=== PATIENT | male | born 1940 | race Caucasian/White ===

== ENCOUNTER 2025-06-15 14:32 | Inpatient (IN) | payer MEDICARE, SELFPAY ==
[2025-06-15] VITALS (11 sets, daily range): BP systolic 133–206; BP diastolic 48–79; BMI 31.2
[2025-06-15 12:18] LABS: Hematocrit 43.0 % (39.0-52.0); Hemoglobin 13.4 g/dL (13.0-18.0); Mean Corp Hgb Conc. 31.2 g/dL (33.0-37.0); Mean Corpuscular Volume 93.1 fL (80.0-94.0); Nucleated Red Blood Cells % 0 % (-); Platelet Count 184 10^3/uL (130-400); Red Cell Dist. Width 14.2 % (11.5-14.5)
[2025-06-15 12:32] LABS: ALT (SGPT) 25 U/L (0-50); AST (SGOT) 25 U/L (17-59); Albumin 4.3 g/dl (3.5-5.0); Alkaline Phosphatase 62 U/L (38-126); Blood Urea Nitrogen 22 mg/dl (9-20); Calcium 9.8 mg/dl (8.4-10.2); Carbon Dioxide 28 mmol/L (22-30); Chloride 104 mmol/L (98-107); Estimated Creatinine Clearance 39 ml/min; Glucose 171 mg/dl (70-99); Potassium 4.6 mmol/L (3.5-5.1); Sodium 137 mmol/L (135-145); Total Protein 7.3 g/dl (6.3-8.2); eGFR 49.56
[2025-06-15 12:43] LABS: Troponin I < 0.012 ng/ml
--- NOTE | 2025-06-15 12:54 | ED.GENMED ---
History of Present Illness
<Zen Oropeza MD - Last Filed: 06/15/25 12:55>
General
Chief Complaint: Cardiac Symptoms
Time Seen by Provider: 06/15/25 11:58
<Anushka Galan PA-C - Last Filed: 06/15/25 23:00>
General
Source: patient
Exam Limitations: none
Nursing documentation reviewed up to this point in time: agreed with
History of Present Illness
History of Present Illness:
Patient is an 85-year-old male with history hypertension who presents to the emergency department after multiple episodes of syncope. Patient states that he experienced a sudden syncopal event on May 19 and was found by his on the ground.
He did not seek care at that time and felt that he may have been dehydrated. However, since that time he has had about 12 additional episodes of near syncope or sudden syncope without prodromal symptoms.
Patient was seen by his primary care provider who ordered a Holter monitor and an MRI of the brain. He has yet to have MRI of brain performed however he did have a Holter monitor which showed sinus bradycardia, high degree AV block, and sinus
pauses. He was referred to the emergency department for pacemaker placement.
Currently, patient is asymptomatic and feels fine. He does report that he has sustained multiple falls secondary to syncope over the past few weeks. He does not have any pain in his extremities suggestive of a traumatic injury. He has not been
able to schedule his MRI thus far.
Review of Systems
<Anushka Galan PA-C - Last Filed: 06/15/25 23:00>
Review of Systems
Allergies reviewed?: Yes
All Other Systems: ROS reviewed and negative except as documented in HPI and ROS
Phy Exam
<Anushka Galan PA-C - Last Filed: 06/15/25 23:00>
Physical Exam
Physical Exam:
Vitals: Hypertensive, otherwise vital signs stable. Afebrile
General: Patient is in no distress
Skin: Warm and dry, no rashes or lesions
Head: Normocephalic, atraumatic
Eyes: Sclera nonicteric. EOMs intact.
Throat: Protecting airway
Neck: Normal ROM, no cervical spine tenderness, no meningismus
Cardiac: Regular rate and rhythm, no murmurs. No reproducible chest wall tenderness. 2+ palpable radial pulses bilaterally
Pulm: Normal respiratory effort. Lungs clear bilaterally
Abdomen: Abdomen soft and nontender.
Extremities: No evidence of cyanosis or edema
Neuro: AAOx3. Grossly intact.
Psychiatric: Normal affect.
Course
<Zen Oropeza MD - Last Filed: 06/15/25 12:55>
Orders/Labs/Results
Orders:
Orders
06/15/25 11:17
Electrocardiogram (*1) Urgent
Reason for Study: Syncope
06/15/25 11:18
EKG- Treatment ONCE
06/15/25 12:02
Complete Blood Count/With Diff Urgent
Comprehensive Metabolic Panel Urgent
Troponin I Urgent
06/15/25 12:34
CT Head W/o Iv Contrast Urgent
Comment:
Reason For Exam: syncope w/ head strike
Cervical Spine wo Contrast CT [CT Cervical Spine W/o Iv Contr] Urgent
Comment:
Reason For Exam: syncope w/ head strike
06/15/25 14:25
Admit/Transfer Patient As Directed
Co-Sign Provider:
Level of Care: Inpatient admission
Assign to:: IVU
Physician / Group: ashley
Diagnosis: high grade AV block
Reason for Hospitalization: high grade AV block
Expected length of stay greater than two midnights?: Yes
ELOS- Estimated Length of Stay in days: 2
I certify the patient meets the requirements for IP care: Yes
Code Status As Directed
Resuscitation Status: Full Code
PRN Pain Medication Management As Directed
May give lesser potent ordered pain med per pt: Yes
preference::
Protocol:: Medication orders for pain may be administered in a
manner that supports deferring to patient preference
when the pt is:
- Requesting an ordered lesser potent pain medication.
Least to most potent pain medications are defined
as: acetaminophen < NSAID < tramadol < opioids
(morphine, oxycodone, hydromorphone).
- Requesting a lesser dose of the same medication IF
ORDERED.
- Requesting a less intrusive route of administration
if both routes are prescribed by the provider (PO <
IV).
06/15/25 14:59
CARDIOLOGY CONSULT Routine
Consulting Provider: Breanne Keys
Was physician already notified: Yes
Activity As Directed
Activity Level: As Tolerated
Vital Signs As Directed
Frequency: Per unit guidelines
DX Deep Vein Thrombosis Video Routine
06/15/25 20:00
Dorzolamide HCl [Trusopt 2% Ophthalmic Solution] 1 drop BOTH EYES BID
Heparin 5,000 units SC Q12
06/15/25 22:00
Cetirizine HCl [Zyrtec] 10 mg PO HS
Latanoprost [Xalatan Ophthalmic Solution] 1 drop BOTH EYES HS
glucosamine sulfate 500 mg PO HS
06/16/25 06:00
Complete Blood Count/With Diff IN AM
Comprehensive Metabolic Panel IN AM
06/16/25 08:00
Aspirin Low Dose EC [Aspir Low (Enteric Coated)] 81 mg PO DAILY
Atorvastatin [Lipitor] 40 mg PO DAILY
Citalopram [Celexa] 10 mg PO DAILY
Multivitamin [Theragran] 1 tablet PO DAILY
Abnormal Lab Results
06/15/25
12:02
RBC 4.62 L 10^6/uL
(4.70-6.10)
MCHC 31.2 L g/dL
(33.0-37.0)
MPV 10.8 H fL
(7.4-10.4)
Absolute Monos (auto) 0.8 H 10^3/uL
(0.1-0.6)
Lymphocytes % 19.3 L %
(20.5-51.1)
Monocytes % 11.3 H %
(1.7-9.3)
BUN 22 H mg/dl
(9-20)
Creatinine 1.4 H mg/dL
(0.7-1.3)
Glucose 171 H mg/dl
(70-99)
06/15/25 12:02
06/15/25 12:02
Vital Signs
Initial and Last Documented VS:
Initial Vital Signs
Temp Pulse Resp BP Pulse Ox
97.8 F 52 16 175/68 96
06/15/25 11:23 06/15/25 11:23 06/15/25 11:23 06/15/25 11:23 06/15/25 11:23
Last Documented Vital Signs
Temp Pulse Resp BP Pulse Ox
97.7 F 64 18 143/51 93
06/15/25 22:22 06/15/25 22:15 06/15/25 22:22 06/15/25 19:26 06/15/25 22:22
<Anushka Galan PA-C - Last Filed: 06/15/25 23:00>
Orders/Labs/Results
Orders:
Orders
06/15/25 11:17
Electrocardiogram (*1) Urgent
Reason for Study: Syncope
06/15/25 11:18
EKG- Treatment ONCE
06/15/25 12:02
Complete Blood Count/With Diff Urgent
Comprehensive Metabolic Panel Urgent
Troponin I Urgent
06/15/25 12:34
CT Head W/o Iv Contrast Urgent
Comment:
Reason For Exam: syncope w/ head strike
Cervical Spine wo Contrast CT [CT Cervical Spine W/o Iv Contr] Urgent
Comment:
Reason For Exam: syncope w/ head strike
06/15/25 14:25
Admit/Transfer Patient As Directed
Co-Sign Provider:
Level of Care: Inpatient admission
Assign to:: IVU
Physician / Group: ashley
Diagnosis: high grade AV block
Reason for Hospitalization: high grade AV block
Expected length of stay greater than two midnights?: Yes
ELOS- Estimated Length of Stay in days: 2
I certify the patient meets the requirements for IP care: Yes
Code Status As Directed
Resuscitation Status: Full Code
PRN Pain Medication Management As Directed
May give lesser potent ordered pain med per pt: Yes
preference::
Protocol:: Medication orders for pain may be administered in a
manner that supports deferring to patient preference
when the pt is:
- Requesting an ordered lesser potent pain medication.
Least to most potent pain medications are defined
as: acetaminophen < NSAID < tramadol < opioids
(morphine, oxycodone, hydromorphone).
- Requesting a lesser dose of the same medication IF
ORDERED.
- Requesting a less intrusive route of administration
if both routes are prescribed by the provider (PO <
IV).
06/15/25 14:59
CARDIOLOGY CONSULT Routine
Consulting Provider: Breanne Keys
Was physician already notified: Yes
Activity As Directed
Activity Level: As Tolerated
Vital Signs As Directed
Frequency: Per unit guidelines
DX Deep Vein Thrombosis Video Routine
06/15/25 20:00
Dorzolamide HCl [Trusopt 2% Ophthalmic Solution] 1 drop BOTH EYES BID
Heparin 5,000 units SC Q12
06/15/25 22:00
Cetirizine HCl [Zyrtec] 10 mg PO HS
Latanoprost [Xalatan Ophthalmic Solution] 1 drop BOTH EYES HS
glucosamine sulfate 500 mg PO HS
06/16/25 06:00
Complete Blood Count/With Diff IN AM
Comprehensive Metabolic Panel IN AM
06/16/25 08:00
Aspirin Low Dose EC [Aspir Low (Enteric Coated)] 81 mg PO DAILY
Atorvastatin [Lipitor] 40 mg PO DAILY
Citalopram [Celexa] 10 mg PO DAILY
Multivitamin [Theragran] 1 tablet PO DAILY
Abnormal Lab Results
06/15/25
12:02
RBC 4.62 L 10^6/uL
(4.70-6.10)
MCHC 31.2 L g/dL
(33.0-37.0)
MPV 10.8 H fL
(7.4-10.4)
Absolute Monos (auto) 0.8 H 10^3/uL
(0.1-0.6)
Lymphocytes % 19.3 L %
(20.5-51.1)
Monocytes % 11.3 H %
(1.7-9.3)
BUN 22 H mg/dl
(9-20)
Creatinine 1.4 H mg/dL
(0.7-1.3)
Glucose 171 H mg/dl
(70-99)
06/15/25 12:02
06/15/25 12:02
Vital Signs
Initial and Last Documented VS:
Initial Vital Signs
Temp Pulse Resp BP Pulse Ox
97.8 F 52 16 175/68 96
06/15/25 11:23 06/15/25 11:23 06/15/25 11:23 06/15/25 11:23 06/15/25 11:23
Last Documented Vital Signs
Temp Pulse Resp BP Pulse Ox
97.7 F 64 18 143/51 93
06/15/25 22:22 06/15/25 22:15 06/15/25 22:22 06/15/25 19:26 06/15/25 22:22
<Anushka Gaaln PA-C - Last Filed: 06/15/25 23:00>
MDM/Problems Addressed
Differential Diagnosis Includes:
Not limited to: Cardiac arrhythmia, AV block, sinus pauses, electrolyte abnormality, coronary artery disease, etc.
MDM/Problems Addressed:
85-year-old male presenting following multiple episodes of sudden syncope over the past few weeks, found to have high degree AV block and sinus pause on holter monitor. Sent for admission and pacemaker placement by cardiology. Patient asymptomatic
and feels well on arrival.
Patient mildly bradycardic with otherwise stable vital signs. Initial EKG shows first- degree AV block. Pacer pads were placed upon arrival to ED room.
Basic labs without acute findings. CT head and cervical spine were obtained given multiple syncopal events over the past few weeks, a few with head strike, without evidence of acute traumatic injuries.
Case reviewed with patrol guard, Dr. Khanna, who is aware. Plan will be for pacemaker placement likely this afternoon. He will require admission to the hospitalist service.
Patient did have a witnessed sinus pause about 7 seconds while on cardiac care unit nurse in ED. He remained alert throughout this pause and asymptomatic. He returned to a sinus rhythm.
Patient admitted to hospitalist service in stable condition and transported to [facility].
Chronic conditions affecting care:
Hypertension
Acute Exacerbation and/or Progression of Chronic Illness:
Acutely hypertensive
<Zen Oropeza MD - Last Filed: 06/15/25 12:55>
*Pulse Oximetry
SaO2: 96
Oxygen Mode of Delivery: Room air
<Anushka Galan PA-C - Last Filed: 06/15/25 23:00>
*Radiology
Radiology exam reviewed: radiology read reviewed
*Pulse Oximetry
Patient hypoxic: no
*EKG
Interpreted by ED Provider?: Yes
EKG Intrepretation Date: 06/15/25
Interpretation: abnormal
Comparison EKG: no changes
Heart Rate: 50
Rate: bradycardiac
Rhythm: sinus
Donalds: normal axis
Interval: normal QT interval
QRS Pattern: right bundle branch block
Ischemia: non-specific ST changes
*Gear Changer Interpretation
Rate: bradycardiac
Interpretation: abnormal
Heart Rate: 48
Rhythm: sinus
*Critical Care Note
Total Time (30-74mins, 75-104mins- exclusive of procedures): Not Applicable
<Anushka Galan PA-C - Last Filed: 06/15/25 23:00>
Patient Management
Discussion with other providers: Hospitalist and Paper Wood Cutter (Case discussed with cardiology)
ED Attending Note
<Zen Oropeza MD - Last Filed: 06/15/25 12:55>
ED Attending Note
Patient seen and examined by attending physician: Yes
I performed the substantive portion of visit, reviewed & personally made and approve the management plan that is documented in note by myself or KEM.: Yes
ED Attending Note:
I have seen and evaluated the patient with a [id number] encounter. I have spoken to the [KEM] and involved in the medical history, the physical exam, medical decision making.
Evaluation and management service: agree unless noted differently below.
Results interpretation: agree unless noted differently below. 85-year-old man presenting to the emergency department with concerns for heart block. Per patient he has history of having syncopal events. He was placed on a monitor and per the
patrol guard patient was found to have a sinus pause with a high degree AV block. Discussed with cardiology who stated that patient needed admission for pacemaker placement. Currently patient has no complaints. He denies any chest pain
lightheadedness dizziness.
GENERAL: in no acute distress
HEENT: normocephalic, extraocular movements intact, moist oral mucosa
NECK: normal inspection
RESPIRATORY: no respiratory distress, clear to auscultation bilaterally
CARDIOVASCULAR: regular rate and rhythm
ABDOMEN/: soft, non-distended, non-tender to palpation, no rebound or guarding
EXTREMITIES: non-tender, no edema/swelling
NEUROLOGIC: awake and alert, moves all extremities
SKIN: warm
85-year-old man presenting to the emergency department after his outpatient monitor showed a sinus pause with high degree block and patient was sent in by cardiology for pacemaker placement. On arrival patient is bradycardic to the 40s. Pads were
placed. Will check blood work. Patient will need admission for pacemaker placement.
-
Portions of this chart may have been created with voice recognition software.� Occasional wrong word or��sound alike� substitutions may have occurred due to the inherent limitations of voice recognition software.
Discharge Plan
Departure
Patient Disposition: Admit
Date of Disposition: 06/15/25
Time of Disposition: 13:36
Presentation/result/management discussed w/ accepting MD/DO: Hospitalist
Discharge Problem:
Syncope, Sinus pause, High degree atrioventricular block
Interventions
Interventions:
*Risk Screen - Suicide Last Done: 06/15/25 11:23
*General Assessment Last Done: 06/15/25 12:05
*Neglect/Abuse Screening Last Done: 06/15/25 11:23
*ED- Fall Risk Assessment Last Done: 06/15/25 14:00
*ED COVID-19 Vaccine History Last Done: 06/15/25 12:05
*ED Influenza Vaccine History Last Done: 06/15/25 12:06
*Nursing Disposition Last Done: 06/15/25 15:53
ED- Pulmonary Assessment Last Done: 06/15/25 12:08
ED- Cardiac Assessment Last Done: 06/15/25 12:06
Discharge Date and Time
Discharge Date/Time: 06/15/25 15:30
--- NOTE | 2025-06-15 14:32 | HPS.HSE ---
Family Physician
-
Family Physician: Hussain Morales
Chief Complaint
-
syncope
History of Present Illness
85-year-old male past medical history of severe aortic stenosis status post bioprosthetic aortic valve replacement, bradycardia, CAD status post CABG, hypertension, hypercholesteremia, prostate cancer, presenting with multiple syncopal episodes
starting earlier this month. His syncopal episodes occur in 2 ways. Sometimes he just blacks out for 30 seconds without any prodrome. At other times he has a blackness coming in from the sides associated with a shreaking sound. He denies any
chest pain or shortness of breath. He did fall multiple times with the syncopal episodes and did hit his head. Denies any headache or blurry vision.
He follows Dr. Gottlieb as his bpm solution architect. He was told he was bradycardic in the past and that he might require pacemaker in the future. Denies any new cardiac medications.
He is a former smoker. Drinks alcohol occasionally.
Medical History
Past Medical History
Past Medical History: Reports Other ( severe aortic stenosis status post bioprosthetic aortic valve replacement, bradycardia, CAD status post CABG, hypertension, hypercholesteremia, prostate cancer)
Past Surgical History: Reports Other (inguinal hernia surgery as a child, and again incidental cholecystectomy in 1997)
Social History
Tobacco: Former Smoker
Alcohol: Occasional
Drug: None
Family History
Family History: Not pertinent
Allergies / Home Medications
Allergies reflects when Allergies were last updated in [facility].
Home Medications with original date entered in [facility]
Allergy/Medication List:
Allergies
Allergy/AdvReac Type Severity Reaction Status Date / Time
cat hair Allergy Unknown Uncoded 06/15/25 11:22
grass Allergy Unknown Uncoded 06/15/25 11:22
Home Medications
aspirin 81 mg tablet,delayed release 81 mg PO DAILY Blood Clot Prevention/Tx 06/08/12
atorvastatin 40 mg tablet (Lipitor) 40 mg PO DAILY High Cholesterol 06/15/25
bimatoprost 0.01 % eye drops (Lumigan) 1 drp BOTH EYES HS Eye Condition 06/15/25
cetirizine 10 mg tablet (Zyrtec) 10 mg PO HS Allergies 06/15/25
citalopram 10 mg tablet (Celexa) 10 mg PO DAILY Mental Health/Anxiety 06/15/25
dorzolamide 2 % eye drops 1 drp BOTH EYES BID Eye Condition 06/15/25
glucosamine sulfate 500 mg tablet 500 mg PO HS Supplement 06/15/25
ibuprofen 200 mg tablet (Advil) 200 mg PO BID mild pain 06/15/25
lisinopril 20 mg tablet 20 mg PO DAILY Blood Pressure 06/15/25
therapeutic multivitamin 1 tab PO DAILY Supplement 06/15/25
Review of Systems
-
History Source: Patient
A 12 point ROS was completed and negative except as noted: Yes
Constitutional: Reports No Symptoms
EENT: Reports No Symptoms
Respiratory: Reports No Symptoms
Cardiac: Reports No Symptoms
Abdomen/GI: Reports No Symptoms
: Reports No Symptoms
Musculoskeletal: Reports No Symptoms
Skin: Reports No Symptoms
Neurological: Reports No Symptoms
Endocrine: Reports No Symptoms
Hematologic/Lymphatic: Reports No Symptoms
Psych: Reports No Symptoms
Physical Exam
Vital Signs
Vital Signs
Temp Pulse Resp BP Pulse Ox
97.8 F 46 11 165/70 96
06/15/25 11:23 06/15/25 12:05 06/15/25 12:00 06/15/25 12:00 06/15/25 12:54
Physical Exam
General: Well Developed, Well Nourished and No Apparent Distress
HEENT: NormoCephalic, Moist mucous membranes and Atraumatic
Respiratory: Clear
Cardiac: S1/S2 and Regular Rhythm; No Murmur or Rub
GI: Soft, Non Tender, Non Distended and Normal Bowel Sounds; No Organomegaly
Rectal: Deferred by Provider
Musculoskeletal: No Clubbing, No Cyanosis and No Edema
Skin: No Rash
Neuro: Nonfocal/grossly intact
Laboratory Results
-
06/15/25 12:02
06/15/25 12:02
Laboratory Results
Total Bilirubin 0.9 mg/dl (0.2-1.3) 06/15/25 12:02
AST 25 U/L (17-59) 06/15/25 12:02
ALT 25 U/L (0-50) 06/15/25 12:02
Alkaline Phosphatase 62 U/L (38-126) 06/15/25 12:02
Troponin I < 0.012 ng/ml 06/15/25 12:02
Data Reviewed
-
Lab Data: Labs Reviewed by me
Old Records: Reviewed
Impression/Plan
-
IMPRESSION:
PLAN:
# Recurrent syncopal episode secondary to high-grade AV block/bradycardia/pauses
- Heart rate 40s
-Asymptomatic currently
-EKG shows sinus bradycardia with first-degree AV block, right bundle branch block which is old
- Cardiology consulted with plan for potential pacemaker today
-N.p.o.
- Chest x-ray pending
- CT head and cervical spine pending
# Acute kidney injury versus CKD
- Hold lisinopril, ibuprofen
- Does not appear volume depleted or overloaded
-continue to monitor
CAD status post CABG
- Continue aspirin, statin
Severe aortic stenosis status post bioprosthetic aortic valve replacement
Essential hypertension
- Hold lisinopril
Hypercholesterolemia
Prostate cancer
Anxiety/depression
-Continue citalopram
Full code
DVT prophylaxis�heparin
N.p.o.
--- NOTE | 2025-06-15 15:05 | ITS.CL.PACE ---
Finisher Hand - Pacemaker Implant
Pacemaker Implant
Procedure Report:
PACEMAKER IMPLANT REPORT
Primary Care Physician: Dr. Hussain Fabian
Primary Hydroelectric Production Manager: Dr. Imtiaz Jolly
Date of Procedure: June 15, 2025
Procedure:
1: Dual chamber pacemaker implantation with fluoroscopic guidance
Indication/Diagnosis:
1: Non-reversible symptomatic bradycardia due to: sinus node dysfunction and symptomatic intermittent third degree AV block.
History: The patient is an 85-year-old man with a complex past medical history including surgical bioprosthetic AVR, status post EVAR for AAA in 2016, hypertension, dyslipidemia, and obesity who presents with recurrent unexplained syncope. M cot
monitoring shows severe symptomatic sinus node dysfunction and intermittent third-degree AV block with syncope. He presented to the [facility] emergency room and is now referred for urgent permanent dual-chamber pacemaker placement.
Antibiotic: Ancef 2 g IV
Sedation: Conscious sedation as per anesthesia staff
Description of Procedure: After informed consent was obtained, 'time out' was called and confirmed, the patient was prepped and draped in a sterile fashion. Lidocaine with epinephrine was used for local anesthesia. Central venous access was
obtained via subclavian venopuncture after a venogram from the left arm confirmed subclavian patency. An incision was made along the left chest and a pre-pectoral pocket was formed. Using a Seldinger technique and peel-away sheaths, the pacing
leads were placed under fluoroscopic guidance. Once testing (see below) showed adequate and stable function, the leads were secured using the suture sleeves. The pocket was liberally irrigated with antibiotic solution. The leads were connected to
the generator header and the leads and generator were placed within the pocket. Fluoroscopy confirmed stable lead position. The pocket was closed in the typical fashion.
IMPLANTS:
Company: [employer] Chriss TAVERAS, SN: [id number] left Pectoral
RA: [employer] Solia S45, SN: [id number], RAA
RV: [employer] Solia S53, SN: [id number], RV apical septum
DEVICE TESTING:
Sensing: RA 3.5 mV, RV 10.4 mV
Capture: RA 0.9 V@0.4ms, RV 0.7 V@0.4ms
Ohms: RA 527, RV 566
FINAL PROGRAMMING
Kelvin Pacing: DDD/CLS 60-120 ppm
Complications: None.
Fluoroscopy Time (min): 6.2
Radiation Dose (mGy): 76
DAP (Gy.cm2): 8.4
CONCLUSIONS:
1: Successful implant of dual chamber permanent pacemaker
RECOMMENDATIONS:
1. Routine post-op care (tele, CXR).
2. In-Office wound check within 7 days.
3. Office interrogation within 4 weeks.
--- NOTE | 2025-06-15 16:10 | W.PN.CARDCBS ---
Today's Communication / Plan
-
NPO
PPM implant today
CXR post procedure
Impression / Plan
-
This is the consult note.
See scanned office note for full consult.
ADD to consult:
FH: CVA, multiple myeloma
SH: Tobacco: former, ETOH: twice a week
PCP: Hussain Morales MD
CDY: Imtiaz Jolly MD
85 y/o, PMH sig for sudden syncope felt to be related to diarrhea/Imodium use. Imodium was stopped and pt continued to have approx 12 episodes of syncope/presyncope since then, december without warning/prodrome. Denies hitting head/injury, no CVA
symptoms, no seizure activity. 30 day MCOT placed yesterday and overnight had 4.1 second pause and intermittent high degree AVB with HR of 34 with preysncope. He is not on AVN meds/anticoagulation, normal EF 08/08 (per [facility] chart records).
Sent to [facility] ER and now to EP lab for PPM implant.
IMPRESSION:
Syncope/Presyncope- 12 events since 05/19/25
4.1 second pauses with high grade AVB and bradycardia
HTN
HLD
Prior Bioprosthetic AVR, 06/2012
CAD, CAB x1, 06/2012
AAA, s/p repair, 06/2016
PLAN:
DC PPM implant today
CXR post procedure
activity limitations post device
incision check at [facility] on Monday 06/18 as scheduled
Progress Note - Jaw Skinner
Subjective
Date of Service: June 15, 2025
Objective
Labs:
06/15/25 12:02
06/15/25 12:02
Labs
Hgb 13.4 g/dL (13.0-18.0) 06/15/25 12:02
Hct 43.0 % (39.0-52.0) 06/15/25 12:02
Plt Count 184 10^3/uL (130-400) 06/15/25 12:02
Sodium 137 mmol/L (135-145) 06/15/25 12:02
Potassium 4.6 mmol/L (3.5-5.1) 06/15/25 12:02
BUN 22 mg/dl (9-20) H 06/15/25 12:02
Creatinine 1.4 mg/dL (0.7-1.3) H 06/15/25 12:02
Glucose 171 mg/dl (70-99) H 06/15/25 12:02
Troponins
06/15/25
12:02
Troponin I < 0.012
Vital Signs and I&O:
Vital Signs
Temp Pulse Resp BP Pulse Ox
97.6 F 45 14 94
06/15/25 15:33 06/15/25 15:45 06/15/25 15:45 06/15/25 15:45 06/15/25 15:45
Vital Signs
Temp Pulse Resp BP Pulse Ox
97.6 F 45 14 94
06/15/25 15:33 06/15/25 15:45 06/15/25 15:45 06/15/25 15:45 06/15/25 15:45
--- NOTE | 2025-06-15 18:26 | PTCARENOTE ---
Received pt S/P pacer insertion. VSS, monitor showing AV paced/SR. Denies pain at present, left anterior chest wall dressing with scant bloody drainage noted and marked. Lungs CTA, denies shortness of breath. POC and activity restrictions discussed
with pt, resting comfortably, call arriaga in reach.
[2025-06-15] MEDS: HEPARIN 5000 UNITS SC (20:35)
[2025-06-15] MEDS: TRUSOPT 2% OPHTHALMIC SOLUTION 1 DROP BOTH EYES (20:35)
--- NOTE | 2025-06-15 21:14 | PTCARENOTE ---
Pt rec'd at change of shift awake,alert no complaints. Pacer site with small marked area of drainage from previous shift. A paced on telemetry.
[2025-06-15] MEDS: ZYRTEC 10 MG PO (22:23)
[2025-06-15] MEDS: XALATAN OPHTHALMIC SOLUTION 1 DROP BOTH EYES (22:24)
[2025-06-15] MEDS: ANCEF 5 IV (22:24)
[2025-06-16 01:51] VITALS: BMI 30.8
[2025-06-16 05:06] LABS: Hematocrit 43.0 % (39.0-52.0); Hemoglobin 13.7 g/dL (13.0-18.0); Mean Corp Hgb Conc. 31.9 g/dL (33.0-37.0); Mean Corpuscular Volume 91.7 fL (80.0-94.0); Nucleated Red Blood Cells % 0 % (-); Platelet Count 173 10^3/uL (130-400); Red Cell Dist. Width 14.1 % (11.5-14.5)
--- NOTE | 2025-06-16 05:09 | W.PN.UPDATE ---
Update Note
Progress Note Update
-Small hematoma noted at the pacer pocket. Placed pressure dressing.
-Stopped sq Heparin. Pneumatic stockings for DVT prophylaxis instead
--- NOTE | 2025-06-16 05:10 | PTCARENOTE ---
Pt came out of bathroom after having a bm c/o some discomfort at pacer site. hematoma present with some more bleeding on drsg covering 1/3 of it and some ecchymosis noted lateral to drsg. Layla BAÑUELOS down to see pt; pressure drsg applied.
[2025-06-16 05:28] LABS: ALT (SGPT) 20 U/L (0-50); AST (SGOT) 26 U/L (17-59); Albumin 4.2 g/dl (3.5-5.0); Alkaline Phosphatase 70 U/L (38-126); Blood Urea Nitrogen 18 mg/dl (9-20); Calcium 9.9 mg/dl (8.4-10.2); Carbon Dioxide 25 mmol/L (22-30); Chloride 104 mmol/L (98-107); Estimated Creatinine Clearance 42 ml/min; Glucose 135 mg/dl (70-99); Magnesium 1.9 mg/dl (1.6-2.3); Potassium 4.7 mmol/L (3.5-5.1); Sodium 135 mmol/L (135-145); Total Protein 7.3 g/dl (6.3-8.2); eGFR 54.17
[2025-06-16] MEDS: ANCEF 5 IV (05:43)
[2025-06-16 05:58] VITALS: BP 176/62
[2025-06-16 07:04] VITALS: BP 178/153
[2025-06-16 07:05] VITALS: BP 189/90
[2025-06-16 07:14] VITALS: BP 199/86
--- NOTE | 2025-06-16 07:26 | W.PN.HOSP.TC ---
Addendum entered and electronically signed by Marti Zimmerman MD 06/16/25 12:46:
Attending�addendum:
I saw and evaluated the patient. I reviewed the resident�s note and agree with findings and plan as documented in the resident�s note.��patient seen and examined at bedside, denies any chest pain or shortness of breath, no abdominal pain, no nausea,
no vomiting, no diarrhea or constipation.
Status post pacemaker
Physical�exam:
GENERAL : Patient is awake, alert, oriented x3
HEENT: Nonicteric sclerae, PERRLA, EOMI. Oropharynx clear. Moist mucous membranes. Conjunctivae appear well perfused.
CHEST: Chest wall is nontender.
HEART: Regular rate and rhythm without murmurs. Pacemaker site is clean, small hematoma
LUNGS: Clear to auscultation bilaterally.
ABDOMEN: Soft, positive bowel sounds, nontender, no organomegaly.
RECTAL: Deferred.
MUSCLES/EXTREMITIES: No abnormal range of motion, no swelling.SKIN: No rash, no excessive bruising, petechiae, or purpura.
NEUROLOGIC: Cranial nerves II-XII intact without motor/sensory deficit.
�
Assessment/plan:
Recurrent syncope status post pacemaker.
Cleared to discharge per cardiology
Hypertension.
Blood pressure improved.
Continue lisinopril
CODE STATUS: Full code
Disposition: Discharge home
�
Total time spent on today�s encounter was 55 minutes which included time spent in counseling the patient/family regarding diagnosis and treatment plan as listed above, goals of care, and symptom management. Case was discussed with nursing staff,
specialists, and care coordinators/case management. All labs and imaging personally reviewed by me. Remainder the time spent in detailed review of previous records, lab data, imaging, and other medical provider documentation.
Original Note:
Today's Communication/Plan
-
Discharge today. Follow up with [facility].
Assessment / Plan
Assessment / Plan
Sky Orona is a 85M w/ PMHx of severe s/p bioprosthetic aortic valve replacement, bradycardia, CAD s/p CABG, hypertension, hypercholesterolemia, prostate cancer who presented with multiple syncopal episodes over the course of a month. Seen in
office at [facility] on 06/14 who felt syncopal episodes likely due to sinus bradycardia/SSS. 30-day MCOT placed on 06/14, overnight had 4.1s pause and high degree AV block sent to [facility] for EP lab with PPM implant.
1. Recurrent Syncopal Episodes 2/2 high-grade AV block/bradycardia/pause
- Heart rate in the 40s on admission
- Recent MCOT placement with noted 4 second pause and high degree AV block
- PPM placement yesterday tolerated well
- Telemetry reviewed, paced rhythm in the 60s
- PPM interrogated by cardiology
- Post-procedural CXR w/o PTX, PM leads in RA/RV
- Case discussed with berlin Chavez for discharge and follow up with him on Wednesday for wound check
2. Hypertension
- Elevated blood pressures this morning
- Lisinopril restarted, PRN hydralazine
- Repeat BP after med restart acceptable
3. LADY (resolved)
4. CAD s/p CABG
- Continue ASA, statin
5. HLD
- continue statin
6. MARILUZ/MDD
- Continue citalopram
CODE: Full
Diet: Cholesterol Lowering
DVT: Pneumatic Compression Sleeves
Anticipated Discharge: Today
Subjective/Interval History
-
Date of Service: June 16, 2025
Sky Orona is a 85M w/ PMHx of severe s/p bioprosthetic aortic valve replacement, bradycardia, CAD s/p CABG in 2011, HTN, HLD, prostate CA who presented with multiple syncopal episodes over the course of a month (occasionally syncopizes for 30
seconds without any prodrome, occasionally experiences closing off peripheral vision associated with a shrieking sound). Seen in office at [facility] on 06/14 who felt syncopal episodes likely due to sinus bradycardia/SSS. 30-day
MCOT placed on 06/14, overnight had 4.1s pause and high degree AV block sent to [facility] for EP lab with PPM implant.
PPM implant yesterday successful. No acute complaints this morning. Denies dizziness, near-syncope, vision changes, headaches, chest pains, shortness of breath.
Objective Data
-
Labs:
Laboratory Results
06/16/25
04:56
WBC 7.8
Hgb 13.7
Hct 43.0
Plt Count 173
Sodium 135
Potassium 4.7
Chloride 104
Carbon Dioxide 25
BUN 18
Creatinine 1.3
Glucose 135 H
Calcium 9.9
Total Bilirubin 0.9
AST 26
ALT 20
Alkaline Phosphatase 70
CBC unremarable, CMP unremarkable
Telemetry reviewed:
Vital Signs:
Vital Signs
Temp Pulse Resp BP Pulse Ox
98.2 F 69 18 199/86 94
06/16/25 07:15 06/16/25 07:14 06/16/25 07:15 06/16/25 07:14 06/16/25 07:15
Review of Systems
-
History Source: Patient
All other systems: Reviewed and negative
Physical Exam
-
General: No Apparent Distress, Comfortable and Conversant
HEENT: Normocephalic and Atraumatic
Respiratory: Non Labored Respirations
Cardiac: S1/S2 and Other (mild ecchymosis of the left pectoral area; ppm surgical site tender with minimal bleeding)
Musculoskeletal: No Edema
Skin: Warm
Neuro: Awake and Alert
Psych: Calm
Data Reviewed
-
Diagnostic Radiology: Image personally visualized and interpreted, Report Reviewed by me and Discussed with Patient
Labs: Labs Reviewed by me and Discussed with Patient
[2025-06-16] MEDS: ZESTRIL 20 MG PO (07:35)
[2025-06-16] MEDS: ASPIR LOW (ENTERIC COATED) 81 MG PO (07:35)
[2025-06-16] MEDS: LIPITOR 40 MG PO (07:35)
[2025-06-16] MEDS: THERAGRAN 1 TABLET PO (07:35)
[2025-06-16] MEDS: CELEXA 10 MG PO (07:35)
[2025-06-16] MEDS: FLUSH (NSS) 2 FLUSH IV (07:36)
[2025-06-16] MEDS: TRUSOPT 2% OPHTHALMIC SOLUTION 1 DROP BOTH EYES (07:36)
--- NOTE | 2025-06-16 08:11 | W.PN.CARDCBS ---
Addendum entered and electronically signed by Darrin Keys MD 06/16/25 10:42:
Patient seen, interviewed and examined by me.
Well-appearing, no acute distress
Area of the left upper chest shows an incision that is clean and dry with good wound apposition and no bleeding.
Regular rate and rhythm with normal S1 and S2, no S3 no S4. There is a grade 1/6 apical holosystolic murmur and no rubs. PMI is normally placed.
Lungs are clear to auscultation bilaterally without wheezes rales or rhonchi.
Abdomen soft nontender nondistended with normoactive bowel sounds
Extremities show trace pretibial edema bilaterally no clubbing or cyanosis.
Neurologic exam is grossly nonfocal.
He has remained afebrile. Vital signs stable.
I personally reviewed his chest x-ray which shows normal expected appearance of the pacemaker and lead system. There is no pneumothorax.
I have reviewed telemetry as well.
His device was interrogated today and finds normal function.
I reviewed with the patient activity/discharge instructions. His wound check will be next Wednesday at [facility].
He is stable for discharge to home today.
All of his questions have been answered.
Original Note:
Today's Communication / Plan
-
Status post pacemaker
Bruising/mild hematoma at site, continue monitoring
Follow blood pressures, outpatient lisinopril resumed
Wound check with [facility] arranged for Wednesday
Plan for DC today
Impression / Plan
-
This is the consult note.
See scanned office note for full consult.
ADD to consult:
FH: CVA, multiple myeloma
SH: Tobacco: former, ETOH: twice a week
PCP: Hussain Morales MD
CDY: Imtiaz Jolly MD
85 y/o, PMH sig for sudden syncope felt to be related to diarrhea/Imodium use. Imodium was stopped and pt continued to have approx 12 episodes of syncope/presyncope since then, december without warning/prodrome. Denies hitting head/injury, no CVA
symptoms, no seizure activity. 30 day MCOT placed yesterday and overnight had 4.1 second pause and intermittent high degree AVB with HR of 34 with preysncope. He is not on AVN meds/anticoagulation, normal EF 08/08 (per [facility] chart records).
Sent to [facility] ER and now to EP lab for PPM implant.
IMPRESSION:
Syncope/Presyncope- 12 events since 05/19/25
4.1 second pauses with high grade AVB and bradycardia
Status post Biotronik dual-chamber pacemaker 06/15/2025
Chronic right bundle branch block
HTN
HLD
Prior Bioprosthetic AVR, 06/2012
CAD, CAB x1, 06/2012
AAA, s/p repair, 06/2016
PLAN:
- Patient presented with recurrent syncopal events. Then had tax advisor placed which showed 4-second pause with high-grade AV block and bradycardia.
- Status post Biotronik dual-chamber pacemaker placement 06/15/2025
- Remains a paced on review of telemetry overnight. EKG a paced rhythm with PACs and right bundle branch block
- Noted to have bruising/small hematoma at pacemaker site. Will continue to monitor in outpatient setting. Hemoglobin stable at 13.7
- CXR without pneumothorax. Does show findings consistent with possible small pleural effusion. Patient without complaints of shortness of breath
- Blood pressures elevated. Resumed outpatient lisinopril. Also placed ordered for IV hydralazine as needed. He reports his blood pressures are normally around 150 systolic outpatient. Would defer further antihypertensive titration to primary
medical scientist
- Reviewed activity limitations post device
- incision check at [facility] on Monday 06/18 as scheduled
- Discussed with primary medical scientist. Okay for discharge today
- Discussed with nursing
Progress Note - Vice Investigator
Subjective
Date of Service: June 16, 2025
Reports some soreness at left chest site, otherwise feeling well
Objective
Labs:
06/16/25 04:56
06/16/25 04:56
Labs
Hgb 13.7 g/dL (13.0-18.0) 06/16/25 04:56
Hct 43.0 % (39.0-52.0) 06/16/25 04:56
Plt Count 173 10^3/uL (130-400) 06/16/25 04:56
Sodium 135 mmol/L (135-145) 06/16/25 04:56
Potassium 4.7 mmol/L (3.5-5.1) 06/16/25 04:56
BUN 18 mg/dl (9-20) 06/16/25 04:56
Creatinine 1.3 mg/dL (0.7-1.3) 06/16/25 04:56
Glucose 135 mg/dl (70-99) H 06/16/25 04:56
Troponins
06/15/25
12:02
Troponin I < 0.012
Vital Signs and I&O:
Vital Signs
Temp Pulse Resp BP Pulse Ox
98.2 F 69 18 199/86 94
06/16/25 07:15 06/16/25 07:14 06/16/25 07:15 06/16/25 07:14 06/16/25 07:15
Vital Signs
Temp Pulse Resp BP Pulse Ox
98.2 F 69 18 199/86 94
06/16/25 07:15 06/16/25 07:14 06/16/25 07:15 06/16/25 07:14 06/16/25 07:15
Physical Exam
Physical Exam
GEN: No distress, awake, alert, oriented x3
HEENT: supple, anicteric, mmm, EOMI
LUNGS: CTA bilaterally, no wheezes/rales
CV: Reg, S1/S2, no murmur
ABD: soft, BS+, NT/ND
EXT: No cyanosis, clubbing, edema
NEURO: Gross non-focal
SKIN: Warm, pink, dry. No rash. Left chest site with pressure dressing in place. Carey-incisional ecchymoses, no firm areas noted
--- NOTE | 2025-06-16 08:21 | PTCARENOTE ---
The patient is aaox3. His BP was elevated at 199/86. His lisinopril had not been ordered and no other BP medications were ordered. I notified Mary Kay and she order his 20mg of lisinopril daily and hydralazine prn. Lisinopril given as ordered.
His left chest wall pressure dressing is intact. Bruising is noted left of his dressing towards his auxiliary. He has some discomfort. Tylenol offered but he refused. A-pacing is noted on the monitor. Activity restrictions of his left arm were
reviewed with the patient.
[2025-06-16 10:54] VITALS: BP 154/79
--- NOTE | 2025-06-16 13:37 | W.DCSUMMARY ---
Addendum entered and electronically signed by Marti Zimmerman MD 06/17/25 08:47:
Attending�addendum:
I saw and evaluated the patient. I reviewed the resident�s note and agree with findings and plan as documented in the resident�s note.��patient seen and examined at bedside, denies any chest pain or shortness of breath, no abdominal pain, no nausea,
no vomiting, no diarrhea or constipation.
Status post pacemaker
Physical�exam:
GENERAL : Patient is awake, alert, oriented x3
HEENT: Nonicteric sclerae, PERRLA, EOMI. Oropharynx clear. Moist mucous membranes. Conjunctivae appear well perfused.
CHEST: Chest wall is nontender.
HEART: Regular rate and rhythm without murmurs. Pacemaker site is clean, small hematoma
LUNGS: Clear to auscultation bilaterally.
ABDOMEN: Soft, positive bowel sounds, nontender, no organomegaly.
RECTAL: Deferred.
MUSCLES/EXTREMITIES: No abnormal range of motion, no swelling.SKIN: No rash, no excessive bruising, petechiae, or purpura.
NEUROLOGIC: Cranial nerves II-XII intact without motor/sensory deficit.
�
Assessment/plan:
Recurrent syncope status post pacemaker.
Cleared to discharge per cardiology
Hypertension.
Blood pressure improved.
Continue lisinopril
CODE STATUS: Full code
Disposition: Discharge home
�
Total time spent on today�s encounter was 55 minutes which included time spent in counseling the patient/family regarding diagnosis and treatment plan as listed above, goals of care, and symptom management. Case was discussed with nursing staff,
specialists, and care coordinators/case management. All labs and imaging personally reviewed by me. Remainder the time spent in detailed review of previous records, lab data, imaging, and other medical provider documentation.
Original Note:
Documented by User: Harsahl Clark DO, Resident 06/16/25 17:55
Discharge Summary
Discharge Data
Date of Admission: 06/15/25
Date of Discharge: 06/16/25
-
Pending Results: No
Hospital Course
Sky Orona is a 85 year old male with a past medical history of severe aortic stenosis status post bioprosthetic aortic valve replacement, bradycardia, coronary artery disease status post bypass, hypertension, hypercholesterolemia, and prostate
cancer who presented with multiple syncopal episodes over the course of a month. Episodes were described as either syncopal events for approximately 30 seconds without prodrome or events of closing off of peripheral vision with subsequent 'shrieking
sounds in ears'. Additionally he endorsed multiple falls during these episodes. He presented himself to his primary care provider and lapidary apprentice the day before presentation. On 06/14, the patient was fitted with a 30-day MCOT monitor, which that
very evening recorded a high degree atrioventricular block and a 4 second pause during a noted event as described above. The patient was urged to admit himself to [facility] for placement of a permanent pacemaker the next day.
ED COURSE
The patient arrived in no acute distress with a benign physical exam. Labs were mostly unremarkable. CT of the cervical spine and the head did not reveal any acute abnormalities.
HOSPITAL COURSE
The patient was cleared for pacemaker placement and received the device that afternoon. He tolerated the procedure well. A chest x-ray confirmed placement and no complications. The next day, the patient did show signs of minimal bruising in the
right pectoral area. His blood pressure was elevated from his medications being on hold in the interim, but normalized upon medication administration. The patient was discharged home with instructions to follow up with his primary care provider and
Dr. Khanna's office on Wednesday for a wound check.
Discharge Plan
-
Patient Disposition: Home (Routine Discharge)
Discharge Diagnosis/Procedures: Biotronik Pacemaker Implant
Recurrent syncopal episodes
High-grade atrioventricular block
Bradycardia
Chronic right bundle branch block
Acute kidney injury
History of hypertension
History of hyperlipidemia
History of bioprosthetic aortic valve replacement
History of CAD status post CABG
History of Mood Disorder
Condition: Fair
Diet: Low Cholesterol and Low Sodium
Additional Activity: Do not raise left arm.
Driving Restrictions: No driving for 1 week
Bathing Restrictions: After dressing removed
Stand Alone Forms: [facility] - Implanted Device
Referrals:
[facility] [Provider Group] - 06/18/25 10:30 am
Referral Note: Post device wound check appointment
Hussian Morales MD [Family Provider, [facility]] - in less than 1 week
Prescriptions:
Continued
aspirin 81 MG tablet,delayed release (DR/EC)
81 mg PO DAILY
atorvastatin [Lipitor] 40 mg Tablet
40 mg PO DAILY
cetirizine [Zyrtec] 10 mg Tablet
10 mg PO HS
citalopram [Celexa] 10 mg Tablet
10 mg PO DAILY
lisinopril 20 mg Tablet
20 mg PO DAILY
glucosamine sulfate 500 mg Tablet
500 mg PO HS
therapeutic multivitamin Tablet
1 tab PO DAILY
ibuprofen [Advil] 200 mg Tablet
200 mg PO BID
dorzolamide 2 % Drops
1 drp BOTH EYES BID
Lumigan 0.01 % Drops
1 drp BOTH EYES HS
Discharge Orders:
Discharge Patient (As Directed); Ordered 06/16/25
Ordered By: Harshal Clark
Discharge Date and Time
Discharge Date/Time: 06/16/25 18:06
Print Language: NORWEGIAN

Documented by User: Marti Zimmerman MD 06/17/25 08:46
Discharge Summary
Discharge Data
Date of Admission: 06/15/25
Date of Discharge: 06/17/25
Discharge Plan
-
Patient Disposition: Home (Routine Discharge)
Discharge Diagnosis/Procedures: Biotronik Pacemaker Implant
Recurrent syncopal episodes
High-grade atrioventricular block
Bradycardia
Chronic right bundle branch block
Acute kidney injury
History of hypertension
History of hyperlipidemia
History of bioprosthetic aortic valve replacement
History of CAD status post CABG
History of Mood Disorder
Condition: Fair
Diet: Low Cholesterol and Low Sodium
Additional Activity: Do not raise left arm.
Driving Restrictions: No driving for 1 week
Bathing Restrictions: After dressing removed
Stand Alone Forms: [facility] - Implanted Device
Referrals:
[facility] [Provider Group] - 06/18/25 10:30 am
Referral Note: Post device wound check appointment
Hussain Morales MD [Family Provider, [facility]] - in less than 1 week
Prescriptions:
Continued
aspirin 81 MG tablet,delayed release (DR/EC)
81 mg PO DAILY
atorvastatin [Lipitor] 40 mg Tablet
40 mg PO DAILY
cetirizine [Zyrtec] 10 mg Tablet
10 mg PO HS
citalopram [Celexa] 10 mg Tablet
10 mg PO DAILY
lisinopril 20 mg Tablet
20 mg PO DAILY
glucosamine sulfate 500 mg Tablet
500 mg PO HS
therapeutic multivitamin Tablet
1 tab PO DAILY
ibuprofen [Advil] 200 mg Tablet
200 mg PO BID
dorzolamide 2 % Drops
1 drp BOTH EYES BID
Lumigan 0.01 % Drops
1 drp BOTH EYES HS
Discharge Orders:
Discharge Patient (As Directed); Ordered 06/16/25
Ordered By: Harshal Clark
Discharge Date and Time
Discharge Date/Time: 06/16/25 18:06
Print Language: NORWEGIAN
[2025-06-16 15:15] VITALS: BP 161/62
== END 2025-06-16 18:06 | disposition home or self-care (01) | DRG 243 ==
LOC: IVU 14:32
PROVIDERS: Emergency Medicine; Internal Medicine Cardiovascular Disease; Internal Medicine Interventional Cardiology; ADMITTING PHYSICIAN Hospitalist; ATTENDING PHYSICIAN General Practice; CONSULT PHYSICIAN Internal Medicine Cardiovascular Disease; EMERGENCY PHYSICIAN Student in an Organized Health Care Education/Training Program; FAMILY PHYSICIAN Family Medicine
PROC: 0JH606Z Insertion of Pacemaker, Dual Chamber into Chest Subcutaneous Tissue and Fascia, Open Approach (ICD-10-PCS; 2025-06-15)
PROC: 02H63JZ Insertion of Pacemaker Lead into Right Atrium, Percutaneous Approach (ICD-10-PCS; 2025-06-15)
PROC: 02HK3JZ Insertion of Pacemaker Lead into Right Ventricle, Percutaneous Approach (ICD-10-PCS; 2025-06-15)
PROC: 4B02XSZ Measurement of Cardiac Pacemaker, External Approach (ICD-10-PCS; 2025-06-16)
DX: I44.2 Atrioventricular block, complete (principal); N17.9 Acute kidney failure, unspecified; I10 Essential (primary) hypertension; C61 Malignant neoplasm of prostate; E66.9 Obesity, unspecified; Z68.30 Body mass index [BMI] 30.0-30.9, adult; E78.00 Pure hypercholesterolemia, unspecified; F32.A Depression, unspecified; F41.9 Anxiety disorder, unspecified; I25.10 Atherosclerotic heart disease of native coronary artery without angina pectoris; I35.0 Nonrheumatic aortic (valve) stenosis; I45.10 Unspecified right bundle-branch block; R29.6 Repeated falls; Z79.82 Long term (current) use of aspirin; Z79.899 Other long term (current) drug therapy; Z87.891 Personal history of nicotine dependence; Z95.1 Presence of aortocoronary bypass graft; Z95.3 Presence of xenogenic heart valve
CPT/HCPCS: 33208; 70450; 71045; 72125; 80053; 83735; 84484; 85025; 93005; 99285; C1785; C1898; Q9967